=== PATIENT | female | born 1985 | race Caucasian/White ===

== ENCOUNTER 2017-06-19 16:39 | Emergency (ER) | payer SELFPAY ==
[2017-06-19 16:55] LABS: Bilirubin Negative (Negative); Blood, Urine Moderate (Negative); Clarity Clear (Clear); Glucose, Urine (Dipstick) Negative (Negative); Leukocyte Small (Negative); Nitrite Negative (Negative); Protein, Urine (Dipstick) Negative (Neg-Trace); Urobilinogen 0.2 mg/dL (0.2-1.0); pH, Urine 7.5 (5.0-9.0)
[2017-06-19 17:06] LABS: Bacteria/HPF Rare-Few HPF (None Seen); RBC/HPF 0-3 HPF (0-3)
[2017-06-19 17:13] LABS: Pregnancy Test - Urine (BHCG) Negative (NEGATIVE); Pregu Control Background? CLEAR/WHITE (CLR/WHITE); Pregu Control Bar Appear? YES (CONTROL BAR)
== END 2017-06-19 17:28 | disposition home or self-care (01) ==
LOC: NAV ERS 16:39
DX: N39.0 Urinary tract infection, site not specified (principal)
CPT/HCPCS: 81003; 81015; 81025; 87086; 99283

== ENCOUNTER 2018-07-15 18:40 | Emergency (ER) | payer SELFPAY ==
--- NOTE | 2018-07-15 19:12 | RAD ---
RIGHT WRIST THREE VIEWS: 07/15/18 HISTORY: Right wrist injury. FINDINGS: Scaphoid waist and ulnar styloid are intact. No acute fracture, dislocation or aggressive osseous ero sions. IMPRESSION: No acute osseous abnormalities are demonstrated. POS: [facility]
== END 2018-07-15 19:21 | disposition home or self-care (01) ==
LOC: NAV ERS 18:40
DX: S63.501A Unspecified sprain of right wrist, initial encounter (principal); W54.1XXA Struck by dog, initial encounter